=== PATIENT | male | born 1960 | race African-American/Black ===

== ENCOUNTER 2020-01-23 20:22 | Emergency (ER) | payer MEDICAID, OTHER ==
[~2020-01-23] VITALS: Ht 182.9 cm; Wt 95.3 kg
[2020-01-23 22:31] LABS: Basophils # (auto) 0.1 10 ^3/uL (0-0.2); Eosinophils # (auto) 0 10 ^3/uL (0-0.8); Hemoglobin 10.8 g/dL (13.5-17.5); Lymphocytes # (auto) 0.8 10 ^3/uL (0.4-5.4); Monocytes # (auto) 0.9 10 ^3/uL (0-1.3); Monocytes % (auto) 4.3 % (0.0-12.0)
[2020-01-23 22:32] LABS: Basophils % (auto) 0.2 % (0.0-2.0); Eosinophils % (auto) 0.1 % (0.0-7.0); Lymphocytes % (auto) 3.4 % (10.0-50.0); Mean Corpuscular Hgb Conc. 32.7 g/dL (32.0-36.0); Mean Corpuscular Volume 85.8 fL (80.0-100.0); Neutrophils # (auto) 20.3 10 ^3/uL (1.6-8.6); Platelet Count (auto) 610 10^3/uL (140-450); Red Blood Cells 3.85 10^6/uL (4.5-5.90); Red Cell Distribution Width 14.9 % (11.8-14.3); White Blood Cell 22.1 10^3/uL (4.4-10.8)
[2020-01-23 22:45] LABS: INR 1.18 (0.9-1.15); Partial Thromboplastin Time 35.3 sec (23.64-32.05)
[2020-01-23 22:48] LABS: Albumin 1.9 g/dL (3.4-5.0); Anion Gap 7 (5-15); BUN/Creatinine Ratio 5.8; Blood Alcohol < 3.0 mg/dL (0-5); Blood Urea Nitrogen 18 mg/dL (7-18); Carbon Dioxide 37 mmol/L (21-32); Chloride 86 mmol/L (98-107); GFR African American 27 mL/min; GFR Non-African American 22 mL/min; Magnesium 1.7 mg/dL (1.6-2.6); Sodium 130 mmol/L (136-145)
[2020-01-23 22:54] LABS: Lactic Acid w/Reflex 2.3 mmol/L (0.4-2.0)
[2020-01-23 22:58] LABS: Alanine Aminotransferase 53 U/L (16-61); Alkaline Phosphatase 242 U/L (45-117); Aspartate Aminotransferase 34 U/L (15-37); Bilirubin, Total 0.7 mg/dL (0.2-1.0)
[2020-01-23 23:06] LABS: Glucose 404 mg/dL (74-106); Potassium 1.6 mmol/L (3.5-5.1)
[2020-01-24] MEDS ORDERED: POTASSIUM EFFERVESENT TAB 25 MEQ PO ONE (00:15)
[2020-01-24] MEDS: POTASSIUM CHL 20MEQ/100ML 100 ML IV SCH ×2 (00:52→02:59)
[2020-01-24] MEDS ORDERED: CLINDAMYCIN 900MG IV 50 ML IV ONE (03:15)
[2020-01-24] MEDS ORDERED: PIPERACILLIN-TAZOB 3.375GM 100 ML IV ONE (03:15)
[2020-01-24 05:04] VITALS: BP 150/83
== END 2020-01-24 05:42 | disposition short-term general hospital (02) ==
LOC: EDBD 20:22 → ER 20:27
DX: A41.9 Sepsis, unspecified organism (principal); M72.6 Necrotizing fasciitis; L03.115 Cellulitis of right lower limb; E11.65 Type 2 diabetes mellitus with hyperglycemia; R41.82 Altered mental status, unspecified; E78.5 Hyperlipidemia, unspecified; Z88.6 Allergy status to analgesic agent
CPT/HCPCS: 36415; 71045; 73700; 80053; 80320; 83605; 83735; 83880; 84132; 84484; 85025; 85610; 85730; 87040; 87070; 87804; 87880; 96365; 96366; 96367; 96368